=== PATIENT | male | born 1945 | race Caucasian/White ===

== ENCOUNTER 2020-05-05 09:23 | Day surgery (SDC) | payer MEDICARE, OTHER ==
[~2020-05-05 09:23] MED LIST: Sodium Chloride 0.9% 10 ML Syringe FLUSH PRN
[2020-05-05] MEDS ORDERED: Propofol 200 MG/20 ML SDV IV ONE (09:24)
[2020-05-05] MEDS ORDERED: Lidocaine 1% PF 2 ML SDV INJECT ONE (09:24)
[2020-05-05] MEDS: Lactated Ringers 1,000 ML IV SCH (09:50)
--- NOTE | 2020-05-05 10:50 | PCM.OPNOTE ---
- General Post-Op/Procedure Note Date of Surgery/Procedure: 05/05/20 Operative Procedure(s): c scope with biospy, cold and hot loop, cold forcep Findings: cecal polyps x4, transverse colon polyp x1, descending colon polyp x3 Pre Op Diagnosis: personal hx of colon polyps Post-Op Diagnosis: cecal polyps x4, transverse colon polyp x1, descending colon polyp x3 Anesthesia Technique: MAC Primary Surgeon: Issac Conn Anesthesia Provider: Gabriel Steve Pathology: cecal polyps x4, transverse colon polyp x1, descending colon polyp x3 Complications: None Condition: Good Free Text/Narrative:: see dictation [id number]
--- NOTE | 2020-05-05 11:55 | OR ---
DATE OF OPERATION: 05/05/2020 SURGEON: Issac Conn MD PROCEDURE PERFORMED: Colonoscopy with a combination of cold forceps, cold loop, and hot loop biopsy. PREOPERATIVE DIAGNOSIS: Personal history of colon polyps. POSTOPERATIVE DIAGNOSES: Cecal polyp x4, transverse colon polyp x1, and descending colon polyp x3. INDICATIONS FOR PROCEDURE: This is a 74-year-old white male who is slightly overdue for a followup scope. He had a personal history of adenomatous polyps on his last scope approximately 6 or 7 years ago. He presents now for a followup colonoscopy. DESCRIPTION OF PROCEDURE: After an excellent IV sedation was administered, digital rectal exam was performed. No marked abnormality was noted. The flexible colonoscope was inserted and advanced to the cecum. The prep was excellent. The following findings were noted: In the cecum, there were a total of 4 polyps. The largest one appeared to be approximately 8 mm in size. This was biopsied with a cold loop snare and retrieved. There were 3 other smaller polyps varying in size between 3 to 4 mm, and these were biopsied with cold forceps as they were not amenable to a loop biopsy. The remainder of the ascending colon was unremarkable. Transverse colon: A small polyp, approximately 4 mm in size, biopsied with cold biopsy forceps. Descending colon: There were 2 pedunculated polyps roughly about 9 mm in size. These were both biopsied with hot loop snare, and then there was a small one that was approximately 2 mm which was biopsied with cold forceps biopsy. The sigmoid, rectum and anus were unremarkable. The patient tolerated the procedure well and was taken to Recovery. Results will be sent to the patient via letter. /[id number] /MODL
== END 2020-05-05 12:05 | disposition home or self-care (01) ==
LOC: FB.SDS 09:23
PROVIDERS: ATTEND Surgery
DX: Z12.11 Encounter for screening for malignant neoplasm of colon (principal); D12.0 Benign neoplasm of cecum; D12.3 Benign neoplasm of transverse colon; D12.4 Benign neoplasm of descending colon; E78.5 Hyperlipidemia, unspecified; J45.909 Unspecified asthma, uncomplicated; Z79.899 Other long term (current) drug therapy; Z87.891 Personal history of nicotine dependence
CPT/HCPCS: 00811; 45380; 45385; 88305; J2001; J2704; J7120

== ENCOUNTER 2021-04-05 17:38 | Emergency (ER) | payer MEDICARE ==
[2021-04-05] MEDS ORDERED: Dexamethasone 4 MG/ML 5 ML MDV IVPUSH ONE (18:37)
[2021-04-05] MEDS ORDERED: Albuterol/Ipratropium 3.0-0.5 MG/3 ML Neb Soln NEB ONE (18:37)
--- NOTE | 2021-04-05 18:41 | EDM.PDOC ---
ED HPI GENERAL MEDICAL PROBLEM - General Chief Complaint: Respiratory Problem Stated Complaint: ??? Time Seen by Provider: 04/05/21 17:45 Source of Information: Reports: Patient - History of Present Illness INITIAL COMMENTS - FREE TEXT/NARRATIVE: 75-year-old gentleman came to the emergency department due to coughing and shortness of breath. He states that he was exposed to Covid 19 last week at a friend's . Over the last 2 to 3 days he has had increased cough, congestion, off and on fever/chills, he has been trying to use his inhalers at home but he is coughing so much he seems to be coughing all of his medicine up. He denies chest pain, change in bowel or bladder habits, arthralgias, myalgias. - Related Data Allergies Allergy/AdvReac Type Severity Reaction Status Date / Time No Known Allergies Allergy Verified 05/05/20 09:49 Home Meds: Home Meds Albuterol Sulfate [Albuterol Sulfate HFA] 2 applicful IH ASDIRECTED PRN 08/10/13 [History] Budesonide/Formoterol [Symbicort 160-4.5 MCG] 2 puff PO BID 05/01/20 [History] Fenofibrate Nanocrystallized [Fenofibrate] 145 mg PO BEDTIME 05/01/20 [History] atorvaSTATin Calcium [Lipitor] 20 mg PO DAILY 05/01/20 [History] Empagliflozin [Jardiance] 10 mg PO DAILY 04/05/21 [History] Hydrocortisone/Pramoxine [Hydrocort-Pramoxine 2.5%-1% cm] 4 gm TOP TID PRN 04/05/21 [History] Terbinafine [LamISIL AT] 1 applic TP TID PRN 04/05/21 [History] metFORMIN [Glucophage XR] 500 mg PO BIDMEALS 04/05/21 [History] Past Medical History HEENT History: Reports: Impaired Vision Cardiovascular History: Reports: High Cholesterol, Hypertension Respiratory History: Reports: Asthma Gastrointestinal History: Reports: Colon Polyp Oncologic (Cancer) History: Reports: Squamous Cell Carcinoma Other Oncologic History: SCC NOSE Social & Family History - Family History Family Medical History: Unobtainable - Tobacco Use Tobacco Use Status *Q: Never Tobacco User - Caffeine Use Caffeine Use: Reports: Coffee - Recreational Drug Use Recreational Drug Use: No ED ROS GENERAL - Review of Systems Review Of Systems: See Below Constitutional: Reports: Fever, Chills HEENT: Reports: No Symptoms Respiratory: Reports: Shortness of Breath, Wheezing, Cough Cardiovascular: Reports: No Symptoms Endocrine: Reports: No Symptoms GI/Abdominal: Reports: No Symptoms : Reports: No Symptoms Musculoskeletal: Reports: No Symptoms Skin: Reports: No Symptoms Neurological: Reports: No Symptoms Psychiatric: Reports: No Symptoms Hematologic/Lymphatic: Reports: No Symptoms Immunologic: Reports: No Symptoms ED EXAM, GENERAL - Physical Exam Exam: See Below Exam Limited By: No Limitations General Appearance: Alert, Mild Distress Eye Exam: Bilateral Eye: EOMI Head: Atraumatic, Normocephalic Neck: Normal Inspection Respiratory/Chest: Respiratory Distress, Crackles, Wheezing Cardiovascular: Regular Rate, Rhythm, No Murmur Peripheral Pulses: 2+: Radial (L), Radial (R), Dorsalis Pedis (L), Dorsalis Pedis (R) GI/Abdominal: Normal Bowel Sounds, Soft, Non-Tender Back Exam: Normal Inspection Extremities: Normal Inspection, No Pedal Edema Neurological: Alert, Oriented, CN II-XII Intact, Normal Cognition Psychiatric: Normal Affect, Normal Mood Skin Exam: Warm, Dry Course - Vital Signs Text/Narrative:: Patient tested positive for COVID-19. He was given DuoNeb, 200 mg remdesivir, and 6 mg dexamethasone. Patient was given DuoNeb treatment because he was coughing so badly he cannot use his inhalers. It was very effective and helped his symptoms. Staff was asked to exit the room before he began nebulizer treatment and was fully gowned including N95 respirators and facemask when he returned to the room 30 minutes after the treatment. Be transferred to [facility]. Last Recorded V/S: Last Vital Signs Temp 38.2 C H 04/05/21 20:05 Pulse 95 04/05/21 17:38 Resp 24 H 04/05/21 17:38 BP 119/79 04/05/21 17:38 Pulse Ox 78 L 04/05/21 17:38 - Orders/Labs/Meds Orders: Active Orders 24 hr Category Date Time Status RT Aerosol Therapy [RC] ASDIRECTED Care 04/05/21 18:37 Active CXR [Chest 1V Frontal] [CR] Stat Exams 10/24/21 18:36 Taken Labs: Laboratory Tests 04/05/21 04/05/21 04/05/21 Range/Units 17:55 19:20 19:20 WBC 5.2 (3.2-10.1) x10-3/uL RBC 4.54 (3.90-5.90) x10(6)uL Hgb 14.4 (12.9-17.7) g/dL Hct 42.3 (38.3-50.1) % MCV 93.2 (80.8-98.7) fL MCH 31.6 (27.0-33.3) pg MCHC 33.9 (28.7-35.3) g/dL RDW 13.1 (12.4-15.0) % Plt Count 158 (117-477) x10(3)uL MPV 8.7 (6.7-11.0) fL Neut % (Auto) 72.1 H (40.3-71.8) % Lymph % (Auto) 16.0 (15.8-45.3) % Dukes % (Auto) 11.4 (5.5-15.2) % Eos % (Auto) 0.0 L (0.1-6.8) % Baso % (Auto) 0.5 (0.3-3.8) % Neut # (Auto) 3.8 (1.7-6.9) x10-3/uL Lymph # (Auto) 0.8 (0.5-4.5) x10-3/uL Dukes # (Auto) 0.6 (0.0-1.2) x10-3/uL Eos # (Auto) 0.0 (0.0-0.6) x10-3/uL Baso # (Auto) 0.0 (0.0-0.3) x10-3/uL POC VBG pH (7.32-7.43) pH Units POC VBG pCO2 (41-51) mmHg POC VBG HCO3 (22-29) mmol/L VBG Base Excess (-2 - 3+) mmol/L O2 Delivery Device Oxygen Flow Rate LPM Sodium 133 L (135-145) mmol/L Potassium 4.8 (3.5-5.3) mmol/L Chloride 96 L (100-110) mmol/L Carbon Dioxide 24 (21-32) mmol/L BUN 33 H (7-18) mg/dL Creatinine 1.4 H (0.70-1.30) mg/dL Est Cr Clr Drug Dosing 43.94 mL/min Estimated GFR (MDRD) 50 L (>60) BUN/Creatinine Ratio 23.6 H (9-20) Glucose 111 (80-116) mg/dL Calcium 8.5 L (8.6-10.2) mg/dL Total Bilirubin 0.8 (0.1-1.3) mg/dL AST 76 H (5-25) IU/L ALT 54 H (12-36) U/L Alkaline Phosphatase 51 L (56-112) IU/L Total Protein 6.8 (6.0-8.0) g/dL Albumin 2.7 L (3.2-4.6) g/dL Globulin 4.1 g/dL Albumin/Globulin Ratio 0.7 SARS-CoV-2 RNA (JAMIR) Positive H (NEGATIVE) 04/05/21 Range/Units 20:15 WBC (3.2-10.1) x10-3/uL RBC (3.90-5.90) x10(6)uL Hgb (12.9-17.7) g/dL Hct (38.3-50.1) % MCV (80.8-98.7) fL MCH (27.0-33.3) pg MCHC (28.7-35.3) g/dL RDW (12.4-15.0) % Plt Count (117-477) x10(3)uL MPV (6.7-11.0) fL Neut % (Auto) (40.3-71.8) % Lymph % (Auto) (15.8-45.3) % Dukes % (Auto) (5.5-15.2) % Eos % (Auto) (0.1-6.8) % Baso % (Auto) (0.3-3.8) % Neut # (Auto) (1.7-6.9) x10-3/uL Lymph # (Auto) (0.5-4.5) x10-3/uL Dukes # (Auto) (0.0-1.2) x10-3/uL Eos # (Auto) (0.0-0.6) x10-3/uL Baso # (Auto) (0.0-0.3) x10-3/uL POC VBG pH 7.44 H (7.32-7.43) pH Units POC VBG pCO2 31 L (41-51) mmHg POC VBG HCO3 21 L (22-29) mmol/L VBG Base Excess -2 (-2 - 3+) mmol/L O2 Delivery Device Simple mask Oxygen Flow Rate 2.5 LPM Sodium (135-145) mmol/L Potassium (3.5-5.3) mmol/L Chloride (100-110) mmol/L Carbon Dioxide (21-32) mmol/L BUN (7-18) mg/dL Creatinine (0.70-1.30) mg/dL Est Cr Clr Drug Dosing mL/min Estimated GFR (MDRD) (>60) BUN/Creatinine Ratio (9-20) Glucose (80-116) mg/dL Calcium (8.6-10.2) mg/dL Total Bilirubin (0.1-1.3) mg/dL AST (5-25) IU/L ALT (12-36) U/L Alkaline Phosphatase (56-112) IU/L Total Protein (6.0-8.0) g/dL Albumin (3.2-4.6) g/dL Globulin g/dL Albumin/Globulin Ratio SARS-CoV-2 RNA (JAMIR) (NEGATIVE) Meds: Medications Discontinued Medications Generic Name Dose Route Start Last Admin Trade Name Freq PRN Reason Stop Dose Admin Acetaminophen 650 mg 04/05/21 19:56 04/05/21 20:05 Acetaminophen 325 Mg Tab PO 04/05/21 19:57 650 mg NOW ONE Administration Albuterol/Ipratropium 3 ml 04/05/21 18:37 04/05/21 19:23 Albuterol/Ipratropium 3.0-0.5 Mg/3 Ml Neb Soln NEB 04/05/21 18:38 3 ml ONETIME ONE Administration Dexamethasone 6 mg 04/05/21 18:37 04/05/21 19:23 Dexamethasone 4 Mg/Ml 5 Ml Mdv IVPUSH 04/05/21 18:38 6 mg ONETIME ONE Administration Enoxaparin Sodium 40 mg 04/05/21 19:55 04/05/21 20:05 Enoxaparin 40 Mg/0.4 Ml Syringe SUBCUT 04/05/21 19:56 40 mg ONETIME ONE Administration Remdesivir 200 mg/ Sodium 250 mls @ 200 mls/hr 04/05/21 18:55 04/05/21 19:14 Chloride IV 04/05/21 20:09 200 mls/hr ONETIME ONE Administration Departure - Departure Time of Disposition: 20:43 Disposition: DC/Tfer to Acute Hospital 02 Condition: Fair Clinical Impression: COVID-19, Respiratory distress, Uncontrolled type 2 diabetes mellitus - Discharge Information *PRESCRIPTION DRUG MONITORING PROGRAM REVIEWED*: Not Applicable *COPY OF PRESCRIPTION DRUG MONITORING REPORT IN PATIENT [place]: Not Applicable Forms: ED Department Discharge Sepsis Event Note (ED) - Evaluation Sepsis Screening Result: Possible Sepsis Risk - Focused Exam Vital Signs: Vital Signs Temp Temp Pulse Resp BP Pulse Ox 04/05/21 20:05 38.2 C H 04/05/21 17:38 38.4 C H 95 24 H 119/79 78 L - My Orders Last 24 Hours: My Active Orders 04/05/21 18:36 CXR [Chest 1V Frontal] [CR] Stat 04/05/21 18:37 RT Aerosol Therapy [RC] ASDIRECTED - Assessment/Plan Last 24 Hours: My Active Orders 04/05/21 18:36 CXR [Chest 1V Frontal] [CR] Stat 04/05/21 18:37 RT Aerosol Therapy [RC] ASDIRECTED
[2021-04-05] MEDS ORDERED: REMDESIVIR 200 MG in Sodium Chloride 0.9% 250 ML IV ONE (18:55)
[2021-04-05] MEDS ORDERED: Enoxaparin 40 MG/0.4 ML Syringe SUBCUT ONE (19:55)
[2021-04-05] MEDS ORDERED: Acetaminophen 325 MG Tab PO ONE (19:56)
[2021-04-05 20:19] LABS: BASE EXCESS VENOUS,POC -2 mmol/L (-2 - 3+); PCO2 VENOUS,POC 31 mmHg (41-51); PH VENOUS,POC 7.44 pH Units (7.32-7.43)
[2021-04-05] MEDS ORDERED: Sodium Chloride 0.9% 1,000 ML IV SCH (21:00)
== END 2021-04-05 23:33 ==
LOC: FB.ED 17:38
DX: U07.1 COVID-19 (principal); E11.9 Type 2 diabetes mellitus without complications; R06.03 Acute respiratory distress; E78.00 Pure hypercholesterolemia, unspecified; I10 Essential (primary) hypertension; Z79.84 Long term (current) use of oral hypoglycemic drugs; Z79.899 Other long term (current) drug therapy
CPT/HCPCS: 36415; 71045; 80053; 85025; 94640; 96372; 96374; 99285; A9270; J1100; J1650; J7030; J7050; U0002; J7620-GY